=== PATIENT | male | born 1935 | race Caucasian/White ===

== ENCOUNTER → 2018-04-18 | Outpatient (CLI) | payer OTHER ==
[~2018-04-18] VITALS: Ht 185.4 cm; Wt 96.5 kg
[~2018-04-18] MED LIST: ALPRAZOLAM 0.50.5 M1 PO; ASPIRIN EC81 M1 PO; BYSTOLIC10 MG PO; CLARITIN10 MG PO; DEPO-TESTO200 MG/1 M IM; FENOFIBRATE160 MG PO; GLUCOSAMINE HC500 MG PO; HYDROCODON-ACE1 EAC7 PO; MULTIVITAMINS1 EAC7 PO; NASACORT; PREVACID15 MG PO; PROMETHAZINE-C120 ML PO; SYNTHROID137 MC1 PO; TRIAMCINOLONE A80 G2 TOP; XARELTO20 MG PO; ZPAK PO; ZYRTEC 10 MG TA10 MG PO
--- NOTE | ~2018-04-18 | HPC ---
[facility] [place] [address] PAIN MANAGEMENT CONSULTATION Name: SEUN MYLES Room #: REG [facility] Leeann.#: [id number] Admission: 04/18/18 Attend Phys: Mehdi Cervantes DO Discharge: Date of : 34 Report #: [id number] THIS REPORT FOR: //name// CC: Mehdi Loja MD DATE OF SERVICE: 04/18/2018 CHIEF COMPLAINT: Axial back pain, right-sided. HISTORY OF PRESENT ILLNESS: As you know, the patient is an 82-year-old male who has been experiencing axial right back pain that began on 02/11/2018. The patient denies specific injury or trauma that may have led to symptom occurrence. He states he has tried conservative treatment options including physical therapy, stretching exercises and core strengthening. He underwent imaging of his lumbar region, which showed degenerative changes of the lumbar spine, typical for an 82-year-old male. There was noted left L4-L5 lateral recess stenosis and sacralization of the L5, but symptoms the patient is experiencing are located on the right side, appears to be myofascial in origin. Due to the fact the patient did not receive improvement in symptoms with conservative treatment, the patient was then subsequently referred to our clinic. The patient indicates today pain is steady; describes the pain as stabbing; places current pain score 7/10, daily average at 10/10, worst pain has been is 10/10. The patient states movement exacerbates symptoms, rest tends to improve pain. He has been referred to our service to discuss treatment options for myofascial pain involving right low back. PAST MEDICAL HISTORY: 1. Essential hypertension. 2. Anxiety disorder. 3. Polycythemia. 4. Osteoarthritis. 5. Hypotestosteronism. 6. Coronary artery disease, status post implantation of a permanent pacemaker. 7. History of DVTs. SOCIAL HISTORY: The patient denies tobacco, alcohol, IV or illicit drug use. He is retired, retired years ago. He is unaccompanied today. REVIEW OF SYSTEMS: Positive for headaches, wearing corrective eyewear, hearing loss with tinnitus, chronic sinus problems with rhinitis, heart trouble, palpitations, frequent urination, nocturia, head injury, back pain. All other review of systems negative per 12-point review of systems other than those [address] [address] PAIN MANAGEMENT CONSULTATION Name: SEUN MYLES Room #: REG [facility] Karlos#: [id number] Admission: 04/18/18 Attend Phys: Mehdi Cervantes DO Discharge: Date of : 34 Report #: [id number] listed in history of present illness. Pain impact score 24/70 indicating [id number] interference of daily activities secondary to pain. ALLERGIES: BACTRIM, CIPRO, DILANTIN, LEVAQUIN, LOVENOX, VOLTAREN, PENICILLIN, CONTRAST AGENT, DICYCLOMINE, MYRBETRIQ, ELIQUIS. CURRENT MEDICATIONS: Tramadol 50 mg q. 6 hours p.r.n. pain, Toprol-XL 50 mg once a day, Zyrtec 10 mg per day, Skelaxin 800 mg t.i.d., testosterone injected every 2 weeks, Synthroid 137 mcg per day, fenofibrate 160 mg per day, Xarelto 20 mg per day, multivitamin 1 tab per day. IMAGING: CT lumbar spine dated 04/11/2018 shows degenerative changes of lumbar spine with mild scoliosis, left L4-L5 lateral recess stenosis sacralization of the L5, no traumatic injury. PQRS: The patient has osteoarthritic changes of the bilateral knees and low back. No rheumatoid arthritis. He is placing pain intensity of 7/10. He is not a fall risk, has not had a fall in the last 3 months. He is treated with blood thinners, but is not treated for hypertension. He is not on chronic opioids. He has a low assessment for opioid addiction. His pain impact tool indicates [id number] interference of daily activities secondary to pain. PHYSICAL EXAMINATION: VITAL SIGNS: Blood pressure 130/55, pulse 42, respiratory rate 16 and unlabored. The patient is 98% on room air, height 6 feet 1 inch tall, weight 212.8 pounds, BMI calculated at 28.1. GENERAL: Well-developed, well-nourished, well-hydrated 82-year-old male appearing stated age, placing current pain score at anywhere up to 7/10. HEENT: Normocephalic, atraumatic. Pupils equal, round, reactive to light. Extraocular muscles are intact. Sclerae nonicteric without injection. NEUROLOGIC: Cranial nerves 2-12 grossly intact. Speech is fluent. The patient deemed a fair historian. LUNGS: Clear. No wheeze, rhonchi or rales. CARDIOVASCULAR: Regular. No appreciable gallop, no rub. ABDOMEN: Soft, nontender, mildly obese, normoactive bowel sounds. EXTREMITIES: Show no clubbing, no cyanosis, no edema. MUSCULOSKELETAL: The patient has palpatory tenderness over the paraspinal musculature of lower lumbar spine, right-sided appears to have approximately 7 trigger points, no specific tender points. Myofascial symptoms are exacerbated with movement including extension and rotation towards the right, negative left. Seated straight leg raising negative. Supine straight leg raising negative. Kassi's test negative. Modified Gaenslen's positive for axial low back pain. Ankle clonus negative. Babinski is negative. Lumbar provocation testing does cause intensification of axial back pain due to facet arthropathy. [facility] [address] [place] [address] PAIN MANAGEMENT CONSULTATION Name: SEUN MYLES Room #: REG RITA [place]rett#: [id number] Admission: 04/18/18 Attend Phys: Mehdi Cervantes DO Discharge: Date of : 34 Report #: [id number] ASSESSMENT: 1. Myofascial pain. 2. Lumbosacral spondylosis without radiculopathy. 3. Facet arthropathy of the lumbar spine. 4. Degeneration of lumbar spine. 5. Chronic intractable pain. PLAN: 1. The patient has been referred to our clinic by his primary care physician to discuss right low back symptoms that are uncontrolled with conservative medical therapy. The patient is performing stretching exercises at home, but has not had a full formalized physical therapy to address this issue. Due to lack of improvement with conservative treatment options provided through his PCP, he was referred to our clinic to trial trigger point injections to address this axial back pain issue. The patient continues on his anticoagulant, which does cause slight complication with injections due to bleeding risk. We discussed the following with the patient for treatment options today. 2. The patient and I discussed physical therapy, stretching exercise, core strengthening as a treatment option. I do feel this would be a very effective way of treating his myofascial symptoms. We discussed medication management with adjustments in his current treatment. We also discussed trigger point injections, though the caveat was provided today that he is on anticoagulants and bruising may be fairly significant. After reviewing the risks and benefits of all the proposed treatment options, the patient chose to begin with trigger point injections. 3. The patient was advised the risks and benefits of trigger point injections. These risks include but are not necessarily limited to bleeding, bruising, infection, worsening of pain, no relief of pain, also risk of temporary or permanent muscle weakness, temporary or permanent nerve damage, possible pneumothorax and . The patient states he understood and wished to proceed. 4. I do recommend the patient begin a more formalized physical therapy program. We have offered this to the patient today. He is going to consider this as an option. After undergoing trigger points today. He did decide he wished to move forward with a formalized physical therapy program. I have offered the patient a referral. He can begin this as quickly as possible. 5. We will see the patient back in followup visit on an as needed basis for possible next in the series of trigger point injections and to discuss other treatment options. 6. I wish to thank Dr. Loja for the referral of this patient to our clinic. We will keep you apprised of his response to treatment. PROCEDURE NOTE DESCRIPTION OF PROCEDURE: Trigger point injections. [address] [address] PAIN MANAGEMENT CONSULTATION Name: SEUN MYLES Room #: REG CL Karlos#: [id number] Admission: 04/18/18 Attend Phys: Mehdi Cervantes DO Discharge: Date of : 34 Report #: [id number] After obtaining written consent, the patient was placed in seated position. By palpating using a single finger, 7 different trigger points were identified in the paraspinal musculature of the thoracolumbar area on the right. Each of these trigger points were marked with a marker and then sterilely cleaned with chlorhexidine. A 27-gauge 1-1/4 inch needle was then advanced towards each of the trigger points until the patient's typical radiating pain pattern was reproduced. After negative aspiration for heme, 1 mL of a solution containing 1 mL 40 mg per mL, 40 mg total triamcinolone and 6 mL of bupivacaine 0.5% was injected in a fanned out distribution. This was completed after 7 injections being performed at each of the trigger points. Sterile bandages were placed over injection site. The patient tolerated the procedure well, carefully escorted to recovery room in stable condition. No apparent complications. After meeting discharge criteria, the patient discharged home. <ELECTRONICALLY SIGNED> By: Mehdi Cervantes DO 04/24/18 1520 [id number] Mehdi Cervantes DO /nt
[2018-04-18 08:44] VITALS: BP 130/55
== END | disposition home or self-care (01) ==
LOC: PAIN 06:57
DX: M79.18 Myalgia, other site (principal); M47.27 Other spondylosis with radiculopathy, lumbosacral region; M12.88 Other specific arthropathies, not elsewhere classified, other specified site; M51.16 Intervertebral disc disorders with radiculopathy, lumbar region; M48.061 Spinal stenosis, lumbar region without neurogenic claudication; G89.29 Other chronic pain; I10 Essential (primary) hypertension; F41.9 Anxiety disorder, unspecified; E03.9 Hypothyroidism, unspecified; I25.10 Atherosclerotic heart disease of native coronary artery without angina pectoris; M41.86 Other forms of scoliosis, lumbar region; Z86.718 Personal history of other venous thrombosis and embolism; Z95.0 Presence of cardiac pacemaker; Z88.8 Allergy status to other drugs, medicaments and biological substances; Z88.0 Allergy status to penicillin; Z79.899 Other long term (current) drug therapy; Z79.01 Long term (current) use of anticoagulants; Z98.890 Other specified postprocedural states; Z90.49 Acquired absence of other specified parts of digestive tract

== ENCOUNTER → 2018-05-09 | Outpatient (CLI) | payer OTHER ==
[~2018-05-09] VITALS: Ht 185.4 cm; Wt 98.5 kg
--- NOTE | ~2018-05-09 | HPC ---
[facility] [address] [place] [address] PAIN MANAGEMENT CONSULTATION Name: SEUN MLYES [id number] Admission: 05/09/18 Attend Phys: Mehdi Cervantes DO Discharge: Date of : 34 Report #: [id number] THIS REPORT FOR: //name// CC: Mehdi Loja MD DATE OF SERVICE: 05/09/2018 CHIEF COMPLAINT: Axial back pain, right-sided. HISTORY OF PRESENT ILLNESS: As you know, the patient is an 82-year-old male who began express experiencing right axial back pain that began 02/11/2018. Denies any specific injury or trauma that may have led to recurrence of symptoms. He was referred back to our clinic to trial injection therapy. He was seen in consultation per the request of Dr. Loja 04/18/2018 where he was diagnosed with myofascial pain, overlying facet arthropathy of the lumbar spine. He underwent trigger point injections with improvement in symptoms. The patient reports as 60%. Despite this 60% improvement in symptoms, he returns with a level of pain 7/10 and indicates pain is steady and stabbing, returning, requesting next in the series of trigger point injections. ALLERGIES: CONTRAST AGENT, PHENYTOIN, DICLOFENAC, PENICILLIN, DICYCLOMINE, SULFAMETHOXAZOLE, CIPROFLOXACIN, LOVENOX, LEVAQUIN, ELIQUIS, MYRBETRIQ, CLARITHROMYCIN. CURRENT MEDICATIONS: Xarelto, levothyroxine, sertraline, fenofibrate, Bystolic. SOCIAL HISTORY: The patient denies tobacco, alcohol, IV or illicit drug use. He is retired, retired years ago, unaccompanied today. IMAGING: There is no new imaging available. PQRS: The patient has arthritic changes of bilateral knees, low back. No rheumatoid arthritis. He is placing current pain intensity 7/10. He is not a fall risk, has not had a fall in the last 3 months. He is treated with blood thinners, but not treated for hypertension. He is not on chronic opioids. He has a low assessment for opioid addiction. Pain impact indicates 23/70, bcrq-va-[id number] interference of daily activities secondary to pain. PHYSICAL EXAMINATION: VITAL SIGNS: Blood pressure 116/71, pulse 77, respiratory rate 14 and unlabored. The patient is 96% on room air, height 6 feet 1 inch tall, weight 217.2 pounds, BMI calculated 28.7. GENERAL: Well-developed, well-nourished, well-hydrated 82-year-old male appearing stated age, placing pain score 7/10. [address] [address] PAIN MANAGEMENT CONSULTATION Name: SEUN MYLES Room #: REG [facility].#: [id number] Admission: 05/09/18 Attend Phys: Mehdi Cervantes DO Discharge: Date of : 34 Report #: [id number] HEENT: Normocephalic, atraumatic. Pupils are equal, round, reactive. Hearing is decreased, but hearing aids are in place. EXTREMITIES: Show no clubbing, no cyanosis, no edema. MUSCULOSKELETAL: The patient has some palpatory tenderness over the paraspinal musculature of lower lumbar spine, no spinous process tenderness. He has 9 specific trigger points and multiple tender points. There is palpatory tenderness over the facet joints of the lower lumbar spine. Lumbar provocation testing is met with increasing axial back pain with extension, rotation, and lateral flexion classic for facet arthropathy. ASSESSMENT: 1. Myofascial pain. 2. Lumbosacral spondylosis without radiculopathy. 3. Facet arthropathy of the lumbar spine. 4. Chronic lumbar degeneration. 5. Chronic intractable pain. PLAN: 1. The patient returns today in followup visit indicating improvement with the trigger point injections at the last visit. The patient and I discussed at length today the source of the symptoms appears to be related to the facet joints of lower lumbar spine. We discussed options for treatment to address facet arthropathy pain but the patient is adamant that he is wishing to undergo only trigger point injections. He is unwilling to come off his Xarelto to undergo intra-articular facet injections, which would address the source of his symptoms more effectively. He has requested that we provide trigger point injections again today as he noted benefit of about 60%. He does not wish to look towards the facet injections or radiofrequency lesioning of the medial branch nerves to address the underlying cause of his symptoms. He requests that we address his myofascial pain. 2. The patient has been advised of the risks and benefits of repeating trigger point injections. These risks include but are not necessarily limited to bleeding, bruising, infection, worsening pain, no relief of pain, also risk of temporary or permanent muscle weakness, temporary or permanent nerve damage, possible paralysis, pneumothorax and . The patient states understood and wished to proceed. 3. No medication changes made at today's visit. The patient to continue current medical therapy as previously prescribed. 4. We will see the patient back in followup visit on an as needed basis. PROCEDURE NOTE DESCRIPTION OF PROCEDURE: Trigger point injections. After obtaining written consent, the patient was placed in seated position. By palpating using a single finger, 9 different trigger points were identified that [address] [address] PAIN MANAGEMENT CONSULTATION Name: SEUN MYLES [facility] [id number] Admission: 05/09/18 Attend Phys: Mehdi Cervantes DO Discharge: Date of : 34 Report #: [id number] reproduced the patient's typical pain. The trigger points were in the paraspinal musculature of thoracolumbar area, specifically on the right side. Each of the trigger points were marked with sterile marker and cleansed sterilely with chlorhexidine. A 27-gauge 1-1/4 inch needle was then used to advance towards each of the trigger points until the patient's typical radiating pain pattern was reproduced. After negative aspiration for heme, 1 mL of a solution containing 1 mL 40 mg per mL, 40 mg total triamcinolone and 10 mL of bupivacaine 0.5% was injected in a fanned out distribution. Needle was then removed. Sterile bandage placed over each of the 9 trigger points. The patient tolerated procedure well, carefully escorted to recovery room in stable condition. No apparent complication. After meeting discharge criteria, the patient discharged home. By: 0744 0801 Mehdi Cervantes DO /nt
[2018-05-09 10:04] VITALS: BP 116/71
--- NOTE | 2018-05-09 10:12 | NUR ---
Pain Clinic Assessment: 1. History of Osteoarthritis: History of Rheumatoid Arthritis: 2. Height: 6 ft. 1 in. 185.4 cm. Weight: 217.2 lb. oz. 98.521 kg. Patient's BMI: 28.7 3. Vital Signs: BP: 116/71 Pulse: 77 Resp: 14 Temp: 02 Sat: 96 ECG Mon: 4. Pain Intensity: 7 5. Fall Risk: Dizziness: N Needs help standing or walking: N Fallen in the last 3 months: N Fall risk comments: 6. Patient on Blood Thinner: XARELTO 7. History of Hypertension: N 8. Opioid Therapy greater than 6 weeks: N Opiate Contract Signed: 9. Risk Assessment Tool Provided: LOW 10. Functional Assessment Tool: 11. Recreational Drug Use: Never Drug Type: Tobacco Use: Never Smoker Tobacco Type: Amount or Packs/day: How Many Years: Alcohol Use: No Frequency: Quant:
== END | disposition home or self-care (01) ==
LOC: PAIN 08:18
DX: M79.18 Myalgia, other site (principal); M47.27 Other spondylosis with radiculopathy, lumbosacral region; M46.96 Unspecified inflammatory spondylopathy, lumbar region; M51.36 Other intervertebral disc degeneration, lumbar region; G89.29 Other chronic pain; Z79.01 Long term (current) use of anticoagulants; Z88.0 Allergy status to penicillin; Z88.2 Allergy status to sulfonamides; Z88.8 Allergy status to other drugs, medicaments and biological substances; Z79.899 Other long term (current) drug therapy

== ENCOUNTER → 2018-07-24 | Outpatient (CLI) | payer OTHER ==
[~2018-07-24] VITALS: Ht 185.4 cm; Wt 102.2 kg
[~2018-07-24] MED LIST changes: +METOPROLOL SUCC25 M1 PO; +METOPROLOL SUCC50 MG PO
[2018-07-24 13:46] VITALS: BP 128/72
--- NOTE | 2018-07-24 13:58 | NUR ---
Pain Clinic Assessment: 1. History of Osteoarthritis: Not Applicable History of Rheumatoid Arthritis: Not Applicable 2. Height: 6 ft. 1 in. 185.4 cm. Weight: 225.4 lb. oz. 102.241 kg. Patient's BMI: 29.7 3. Vital Signs: BP: 128/72 Pulse: 73 Resp: 16 Temp: 02 Sat: 97 ECG Mon: 4. Pain Intensity: 5 5. Fall Risk: Dizziness: N Needs help standing or walking: N Fallen in the last 3 months: N Fall risk comments: 6. Patient on Blood Thinner: XARELTO 7. History of Hypertension: N 8. Opioid Therapy greater than 6 weeks: N Opiate Contract Signed: 9. Risk Assessment Tool Provided: LOW 10. Functional Assessment Tool: 11. Recreational Drug Use: Never Drug Type: Tobacco Use: Never Smoker Tobacco Type: Amount or Packs/day: How Many Years: Alcohol Use: No Frequency: Quant:
--- NOTE | 2018-08-01 07:49 | HPC ---
[facility] [address] PAIN MANAGEMENT CONSULTATION Name: SEUN MYLES Room #: REG [facility]edom.#: [id number] Admission: 07/24/18 ������������������ Attend Phys: Mehdi Cervantes DO Discharge: ������������������ Date of : 34 Report #: [id number] THIS REPORT FOR: //name// CC: Mehdi Loja MD DATE OF SERVICE: 07/24/2018 CHIEF COMPLAINT: Axial left-sided back pain. HISTORY OF PRESENT ILLNESS: As you know, the patient is an 82-year-old male who began experiencing axial right low back pain that presented 02/11/2018. He denies any specific injury or trauma that led to symptom occurrence. He is referred to our service to trial trigger point injections. He underwent trigger point injections on 04/18/2018 and repeated these injections on 05/09/2018. He has had complete resolution of his right low back symptoms, but is now experiencing left low back symptoms. He denies any specific injury or trauma or any changes in medical history since our last visit. He returns requesting trigger point injections to address his left axial back pain. He is placing his pain score today at 5/10. ALLERGIES: CONTRAST AGENT, PHENYTOIN, DICLOFENAC, PENICILLIN, DOXYCYCLINE, SULFAMETHOXAZOLE, TRIAMTERENE, CIPROFLOXACIN, ENOXAPARIN, LEVOFLOXACIN, ELIQUIS, and MYRBETRIQ. SOCIAL HISTORY: The patient denies tobacco, alcohol, IV, or illicit drug use. He is retired, retired 8 years ago. He is accompanied by his present in room today. IMAGING: No new imaging available. PQRS: The patient has arthritic changes of bilateral knees and the lumbar spine, no rheumatoid arthritis. The patient is placing pain intensity today at 5/10, is not at fall risk, has not had a fall in the last 3 months. He is on blood thinners in the form of Xarelto. He is treated for hypertension. He is not on chronic opioids. He has a low opiate addiction potential. He is placing pain impact score of 23/70 indicating [id number]-[id number] interference of daily activities secondary to pain. PHYSICAL EXAMINATION: VITAL SIGNS: Blood pressure 128/72, pulse 73, respiratory rate 16 and unlabored. The patient is 97% on room air. Height 6 foot 1 inch tall, weighs 225.4 pounds, and BMI calculated 29.7. GENERAL: Well-developed, well-nourished, well-hydrated 82-year-old male, appearing stated age. Pain is rated today at 5/10. [place] [address] PAIN MANAGEMENT CONSULTATION Name: SEUN MYLES [facility] [id number] Admission: 07/24/18 ������������������ Attend Phys: Mehdi Cervantes DO Discharge: ������������������ Date of : 34 Report #: [id number] HEENT: Normocephalic, atraumatic. Pupils equal, round, reactive to light. EXTREMITIES: Show no clubbing, no cyanosis, and no edema. MUSCULOSKELETAL: The patient has some palpatory tenderness over the paraspinal musculature of the lower lumbar, mid lumbar, upper lumbar, and lower thoracic area. This is all left-sided. There are three trigger points identified that caused the patient's typical radiating pain pattern. Seated straight leg raising negative. Supine straight leg raising negative. Kassi's test is negative. Modified Gaenslen's positive for axial low back pain. ASSESSMENT: 1. Myofascial pain. 2. Lumbosacral spondylosis without radiculopathy. 3. Facet arthropathy of the lumbar spine. 4. Degeneration of lumbar spine. 5. Muscle spasms. 6. Chronic intractable pain. PLAN: 1. The patient returns today in followup visit having complete resolution of his right axial back pain. He is now experiencing 3 discrete areas of discomfort on the left side for which he wishes to undergo trigger point injections. The patient has been advised of the risks and the benefits of trigger point injections in the area. These risks include but are not necessarily limited to bleeding, bruising, infection, worsening pain, no relief of pain, also risk of temporary or permanent muscle weakness, temporary or permanent nerve damage, possible paralysis pneumothorax, and . The patient states understood and wished to proceed. 2. No medication changes made at today's visit. The patient will continue current medical therapy as previously prescribed. 3. We will see the patient back in followup visit on an as needed basis. PROCEDURE NOTE DESCRIPTION OF PROCEDURE: Trigger points. After obtaining written consent, the patient was placed in a seated position. By palpating using a single finger, 3 discrete trigger points were identified within the paraspinal musculature of the thoracolumbar area on the left. Each of the trigger points were marked with a marker and then sterilely cleaned with chlorhexidine. A 27-gauge 1-1/4 inch needle was then advanced towards each of the trigger points until the patient's typical radiating pain pattern was reproduced. After negative aspiration for heme, 1 mL of a solution containing 1 mL 40 mg per mL, 40 mg total triamcinolone, and 2 mL of bupivacaine 0.5% injected in a fanned out distribution at each site. There was a total of 3 mL of solution given. [address] [address] PAIN MANAGEMENT CONSULTATION Name: SEUN MYLES [facility] #: [facility]#: [id number] Admission: 07/24/18 ������������������ Attend Phys: Mehdi Cervantes DO Discharge: ������������������ Date of : 34 Report #: [id number] Sterile bandage was then placed over injection site. The patient tolerated procedure well, carefully escorted to recovery room in stable condition. No apparent complications. After meeting discharge criteria, the patient discharged home. ��������������������������������������������� <ELECTRONICALLY SIGNED> ���������������������������������������� By: Mehdi Cervantes DO ��������������������������������������������� 08/01/18 0749 1324 0211 Mehdi Cervantes DO /nt
== END | disposition home or self-care (01) ==
LOC: PAIN 07:17
DX: M79.18 Myalgia, other site (principal); M47.27 Other spondylosis with radiculopathy, lumbosacral region; M12.88 Other specific arthropathies, not elsewhere classified, other specified site; M51.16 Intervertebral disc disorders with radiculopathy, lumbar region; G89.29 Other chronic pain; Z88.8 Allergy status to other drugs, medicaments and biological substances; Z79.899 Other long term (current) drug therapy

== ENCOUNTER → 2018-12-11 | Outpatient (CLI) | payer OTHER ==
[~2018-12-11] VITALS: Ht 185.4 cm; Wt 100.4 kg
[~2018-12-11] MED LIST changes: +SORINE 80 MG TA80 M1 PO
--- NOTE | ~2018-12-11 | HPC ---
[facility] [address] [place] [address] PAIN MANAGEMENT CONSULTATION Name: SEUN MYLES Room #: REG RITA Karlos#: [id number] Admission: 12/11/18 ������������������ Attend Phys: Mehdi Cervantes DO Discharge: ������������������ Date of : 34 Report #: [id number] THIS REPORT FOR: //name// CC: Mehdi Loja MD DATE OF SERVICE: 12/11/2018 CHIEF COMPLAINT: Myofascial pain. HISTORY OF PRESENT ILLNESS: As you know, the patient is an 83-year-old male who returns today in followup visit with right axial low back pain that reoccurred while putting on his spandex compression stockings. He states pain begins in the lower portion of back, radiates towards the iliac crest on the right. He has returned today in followup visit to undergo trigger point injections as he has seen good benefit with these in the past. He returns requesting trigger point injections provided today. He places pain today at 5/10. He remains on his Xarelto understanding that he is at risk for bleeding issues with this medication even with trigger point injections. He states his pain has intensified to the point he cannot go about his activities of daily living due to this ongoing symptomology. He has not begun any type of stretching program. He does go to a local gym, but there are no formalized treatment options available for the patient from a physical standpoint. He does no stretching exercises. He returns today for trigger point injections. ALLERGIES: CONTRAST AGENT, PHENYTOIN, DICLOFENAC, PENICILLIN, DOXYCYCLINE, SULFAMETHOXAZOLE, TRIAMTERENE, CIPROFLOXACIN, ENOXAPARIN, LEVOFLOXACIN, ELIQUIS, MYRBETRIQ. SOCIAL HISTORY: The patient denies tobacco, alcohol, IV or illicit drug use. He is retired, retired 8 years ago, accompanied by his present in room today. IMAGING: No new imaging available. PQRS: The patient has known osteoarthritic changes of the lumbar spine, bilateral knees but no rheumatoid arthritis. He is placing pain intensity 5/10, is not a fall risk, has not had a fall in last 3 months. He is on Xarelto. He is treated for hypertension. He is not on opioids. He has a low opioid addiction potential. He is placing pain impact score 23/70 indicating moderate interference of daily activities secondary to pain. PHYSICAL EXAMINATION: VITAL SIGNS: Blood pressure 121/64, pulse 79, respiratory rate 16 and unlabored. The patient is 97% on room air, height 6 feet 1 inch tall, weight [facility] [address] [place] [address] PAIN MANAGEMENT CONSULTATION Name: SEUN MYLES Room #: REG [facility]#: [id number] Admission: 12/11/18 ������������������ Attend Phys: Mehdi Cervantes DO Discharge: ������������������ Date of : 34 Report #: [id number] 221.4 pounds, BMI calculated 29.2. GENERAL: Well-developed, well-nourished, well-hydrated 83-year-old male appearing stated age, pain is rated today 5/10. HEENT: Normocephalic, atraumatic. Hearing is decreased. There are hearing aids present. EXTREMITIES: Show no clubbing, no cyanosis, no edema. MUSCULOSKELETAL: Palpatory tenderness over the paraspinal musculature of lower right lumbar area. There are six specific trigger points identified. No specific tender points. Seated straight leg raising negative. Supine straight leg raising negative. Kassi's test negative. Modified Gaenslen's positive for some axial low back pain. Ankle clonus negative. Babinski is negative. ASSESSMENT: 1. Myofascial pain. 2. Lumbosacral spondylosis without radicular symptoms. 3. Facet arthropathy of the lumbar spine. 4. Muscle spasms. 5. Chronic intractable pain. PLAN: 1. The patient returns today in followup visit indicating recurrence of right low back pain radiating from the paraspinal musculature towards the iliac crest on the right. He states this was exacerbated with putting on his compression stockings the other day. He does not participate in any formalized physical therapy program or stretching exercises, even though we have provided the patient with a prescription to undergo this type of treatment to address his myofascial symptoms. He has been resistant to initiate the physical therapy. We strongly recommend that he follow up with physical therapy, learning techniques for stretching and alleviating the myofascial symptoms. He continues to have reoccurred. 2. The patient has been consented and will perform trigger point injections at today's visit. The patient was advised risks and benefits of the procedure. These risks include but are not necessarily limited to bleeding, bruising, infection, worsening pain, no relief of pain, also risk of temporary or permanent muscle weakness, temporary or permanent nerve damage, possible paralysis and . The patient states he understood and wished to proceed. 3. No medication changes made at today's visit. The patient will continue current medical therapy as previously prescribed. 4. The patient should follow up with physical therapy for the formalized stretching program and treatments for myofascial symptoms. We will see him back in followup visit on an as needed basis. PROCEDURE NOTE DESCRIPTION OF PROCEDURE: Trigger point injections. [address] [address] PAIN MANAGEMENT CONSULTATION Name: SEUN MYLES Room #: REG CLI Leeann#: [id number] Admission: 12/11/18 ������������������ Attend Phys: Mehdi Cervantes DO Discharge: ������������������ Date of : 34 Report #: [id number] After obtaining written consent, the patient was placed in a seated position. By palpating using a single finger, six trigger points were identified that radiated the patient's typical pain pattern. These trigger points were located in the paraspinal musculature of thoracolumbar area on the right and just superior to the iliac crest. The trigger points were marked with a sterile marker and cleaned with chlorhexidine. A 27-gauge 1-1/4 inch needle was then used to advance towards each of the trigger points until the patient's typical radiating pain pattern was then reproduced. After negative aspiration for heme, 1 mL of a solution containing 1 mL, 40 mg per mL, 40 mg total triamcinolone and 5 mL bupivacaine 0.5% injected and fanned out distribution at each site. There was a total of 6 mL being provided. A sterile bandage was placed over each of the injection sites. The patient tolerated procedure well, carefully escorted to recovery room in stable condition. No apparent complications. After meeting discharge criteria, the patient discharged home. ��������������������������������������������� ���������������������������������������� By: ��������������������������������������������� [id number] Mehdi Cervantes DO /nt
[2018-12-11 12:51] VITALS: BP 121/64
--- NOTE | 2018-12-11 13:01 | NUR ---
Pain Clinic Assessment: 1. History of Osteoarthritis: Not Applicable History of Rheumatoid Arthritis: Not Applicable 2. Height: 6 ft. 1 in. 185.4 cm. Weight: 221.4 lb. oz. 100.427 kg. Patient's BMI: 29.2 3. Vital Signs: BP: 121/64 Pulse: 79 Resp: 16 Temp: 02 Sat: 97 ECG Mon: 4. Pain Intensity: 5 5. Fall Risk: Dizziness: N Needs help standing or walking: N Fallen in the last 3 months: N Fall risk comments: 6. Patient on Blood Thinner: XARELTO 7. History of Hypertension: N 8. Opioid Therapy greater than 6 weeks: N Opiate Contract Signed: 9. Risk Assessment Tool Provided: LOW 10. Functional Assessment Tool: 11. Recreational Drug Use: Never Drug Type: Tobacco Use: Never Smoker Tobacco Type: Amount or Packs/day: How Many Years: Alcohol Use: No Frequency: Quant:
== END | disposition home or self-care (01) ==
LOC: PAIN 07:00
DX: M79.18 Myalgia, other site (principal); M47.817 Spondylosis without myelopathy or radiculopathy, lumbosacral region; M12.88 Other specific arthropathies, not elsewhere classified, other specified site; G89.29 Other chronic pain; Z79.01 Long term (current) use of anticoagulants; Z88.0 Allergy status to penicillin; Z88.8 Allergy status to other drugs, medicaments and biological substances; Z79.899 Other long term (current) drug therapy

== ENCOUNTER → 2019-07-17 | Outpatient (CLI) | payer OTHER ==
[~2019-07-17] VITALS: Ht 185.4 cm; Wt 100.6 kg
--- NOTE | ~2019-07-17 | HPC ---
[facility] [address] [place] [address] PAIN MANAGEMENT CONSULTATION Name: SEUN MYLES Room #: REG RITA [facility].#: [id number] Admission: 07/17/19 Attend Phys: Mehdi Cervantes DO Discharge: Date of : 34 Report #: [id number] THIS REPORT FOR: cc: Rickey Loja MD, Kirk D. MD Johnson, James E. DO ~ CC: Mehdi Loja MD DATE OF SERVICE: 07/17/2019 CHIEF COMPLAINT: Myofascial pain. HISTORY OF PRESENT ILLNESS: As you know, the patient is a pleasant 83-year-old male who has returned today in followup visit with right axial back pain issues. We have followed the patient for some time for continued right axial back pain, myofascial symptoms. He has done very well with trigger point injections in the past. He states that this new pain returned when trying to put on his shoes. Apparently, the patient is having difficulty with placing and tying his shoes on the right side. He states he stretches his back and then his pain begins. It appears again to be myofascial in origin. The patient is extremely stiff and inflexible over the past couple of days due to this ongoing pain. He returns today in followup visit for trigger point injections in hopes of improving his right low back paravertebral symptoms. ALLERGIES: CONTRAST AGENT, PHENYTOIN, DICLOFENAC, PENICILLIN, DOXYCYCLINE, SULFAMETHOXAZOLE, TRIAMTERENE, CIPROFLOXACIN, ENOXAPARIN, LEVOTHYROXINE, ELIQUIS, AND MYRBETRIQ. SOCIAL HISTORY: The patient denies tobacco, alcohol, IV or illicit drug use. He is retired, retired years ago. He is accompanied by his present in room today. IMAGING: No new imaging available. PQRS: The patient has known arthritic changes of lumbar spine, bilateral knees, but reports no rheumatoid arthritis. He is placing pain intensity at 4/10. He is not a fall risk, has not had a fall in last 3 months. He is on Xarelto for blood thinning. He is treated for hypertension. He is not on any opioids and has a low opioid addiction potential. Pain impact score 23 of 70 indicating mild to moderate interference of daily activities secondary to pain. PHYSICAL EXAMINATION: VITAL SIGNS: Blood pressure 129/75, pulse 70, respiratory rate 16 and unlabored. The patient is 98% on room air. Height 6 feet 1 inch tall, weight [facility] [address] [place] [address] PAIN MANAGEMENT CONSULTATION Name: SEUN MYLES Room #: REG CLI [facility]#: [id number] Admission: 07/17/19 Attend Phys: Mehdi Cervantes DO Discharge: Date of : 34 Report #: [id number] 221 pounds, BMI calculated 29.3. GENERAL: Well-developed, well-nourished, well-hydrated 83-year-old male appearing stated age. Pain is rated today 4/10. HEENT: Normocephalic, atraumatic. Pupils equal, round, reactive to light. Extraocular muscles are intact. Sclerae nonicteric without injection. EXTREMITIES: Show no clubbing, no cyanosis, and no edema. MUSCULOSKELETAL: The patient has palpatory tenderness over the paraspinal musculature of the right lower lumbar spine. It does appear he is experiencing spasming of the longissimus, the spinalis, and the iliocostalis muscles on the right. I am unable to elicit approximately 10 specific trigger points that intensify the patient's pain. There are multiple tender points in the area. ASSESSMENT: 1. Myofascial pain. 2. Lumbosacral spondylosis without radicular symptoms. 3. Facet arthropathy of lumbar spine. 4. Muscle spasms. 5. Chronic intractable pain. PLAN: 1. The patient returns today in followup visit having exacerbated his chronic right low back pain with trying to place shoes and tie his shoes a couple of days back. The patient reports that he has done nothing from a physical standpoint to try to alleviate symptoms including stretching or massage therapy. The patient, as you are aware, does participate in a workout routine, but it is inconsistent. He returns today in followup visit requesting trigger point injections to address axial back pain and myofascial symptoms. The patient denies any injury or trauma to the area, but does equate his symptoms to this incident trying to tie his shoes. 2. No medication changes made at today's visit. The patient will continue current medical therapy as previously prescribed. 3. We have recommended to the patient that he begin a more concerted effort at a stretching program. I believe that light yoga would be extremely beneficial for the patient. He does have access to a gym through his [employer] program and he believes there might be an adult yoga program that is present at the facility. I have advised the patient to look into this carefully. I do feel that increased mobility and stretching as well as possible light massage would benefit the patient significantly. The recurrence of his myofascial symptoms would indicate that he is restricting his motion in the area causing exacerbation of symptoms with little or no significant irrigations. We strongly suggest stretching and exercise program for the patient to be utilized consistently. 4. We will see the patient back in followup visit on an as needed basis for possible further treatment for his myofascial pain. We are hopeful the patient will see benefit as he is seen with previous trigger point injections. [facility] [address] [place] [address] PAIN MANAGEMENT CONSULTATION Name: SEUN MYLES Room #: REG CL Leeann.#: [id number] Admission: 07/17/19 Attend Phys: Mehdi Cervantes DO Discharge: Date of : 34 Report #: [id number] PROCEDURE NOTE DESCRIPTION OF PROCEDURE: Trigger point injections. After obtaining written consent, the patient was placed in a seated position. By palpating using a single finger, 10 trigger points were identified that radiated the patient's typical radiating pain pattern. These trigger points were located within the paraspinal musculature of the thoracolumbar area on the right side just superior to the iliac crest. Trigger points were marked with sterile marker and cleansed with chlorhexidine. A 27-gauge 1-1/4 inch needle was then used to advance towards each of the trigger points until the patient's typical radiating pain pattern was reproduced. After negative aspiration for heme, 1 mL of a solution containing 1 mL, 40 mg per mL, 40 mg total triamcinolone along with 9 mL bupivacaine 0.5% injected in a fanned out distribution at each site. There was a total of 10 mL of injectate provided. Sterile bandages were placed over each of the injection sites. The patient tolerated procedure well, carefully escorted to recovery room in stable condition. No apparent complications. After meeting discharge criteria, the patient discharged home. By: 0804 Mehdi Cervantes DO /diamond
[2019-07-17 14:00] VITALS: BP 129/75
--- NOTE | 2019-07-17 14:23 | NUR ---
Pain Clinic Assessment: 1. History of Osteoarthritis: Not Applicable History of Rheumatoid Arthritis: Not Applicable 2. Height: 6 ft. 1 in. 185.4 cm. Weight: 221.8 lb. oz. 100.608 kg. Patient's BMI: 29.3 3. Vital Signs: BP: 129/75 Pulse: 70 Resp: 16 Temp: 02 Sat: 98 ECG Mon: 4. Pain Intensity: 4 5. Fall Risk: Dizziness: N Needs help standing or walking: N Fallen in the last 3 months: N Fall risk comments: 6. Patient on Blood Thinner: XARELTO 7. History of Hypertension: N 8. Opioid Therapy greater than 6 weeks: N Opiate Contract Signed: 9. Risk Assessment Tool Provided: LOW 10. Functional Assessment Tool: 11. Recreational Drug Use: Never Drug Type: Tobacco Use: Never Smoker Tobacco Type: Amount or Packs/day: How Many Years: Alcohol Use: No Frequency: Quant:
== END | disposition home or self-care (01) ==
LOC: PAIN 06:45
DX: M79.18 Myalgia, other site (principal); M47.897 Other spondylosis, lumbosacral region; M47.896 Other spondylosis, lumbar region; G89.29 Other chronic pain; M19.90 Unspecified osteoarthritis, unspecified site; Z98.890 Other specified postprocedural states; Z79.899 Other long term (current) drug therapy; Z88.0 Allergy status to penicillin; Z88.8 Allergy status to other drugs, medicaments and biological substances; Z79.01 Long term (current) use of anticoagulants

== ENCOUNTER 2019-11-08 00:46 | Emergency (ER) | payer OTHER ==
[~2019-11-08] VITALS: Ht 185.4 cm; Wt 97.5 kg
[2019-11-08 02:46] VITALS: BP 136/75
== END 2019-11-08 02:48 | disposition home or self-care (01) ==
LOC: ER 00:46
DX: R04.0 Epistaxis (principal); Z79.01 Long term (current) use of anticoagulants; Z88.1 Allergy status to other antibiotic agents; Z91.041 Radiographic dye allergy status; Z88.0 Allergy status to penicillin; Z88.6 Allergy status to analgesic agent; Z79.899 Other long term (current) drug therapy; Z90.89 Acquired absence of other organs; Z90.49 Acquired absence of other specified parts of digestive tract; Z95.0 Presence of cardiac pacemaker

== ENCOUNTER → 2019-11-27 | Outpatient (CLI) | payer OTHER ==
[~2019-11-27] VITALS: Ht 185.4 cm; Wt 100.9 kg
[2019-11-27 14:17] VITALS: BP 138/84
--- NOTE | 2019-11-27 14:19 | NUR ---
Pain Clinic Assessment: 1. History of Osteoarthritis: Left Upper Extremity History of Rheumatoid Arthritis: Not Applicable 2. Height: 6 ft. 1 in. 185.4 cm. Weight: 222.4 lb. oz. 100.880 kg. Patient's BMI: 29.3 3. Vital Signs: BP: 138/84 Pulse: 86 Resp: 18 Temp: 02 Sat: 96 ECG Mon: 4. Pain Intensity: 2 NOW, 10 AT NIGHT 5. Fall Risk: Dizziness: N Needs help standing or walking: N Fallen in the last 3 months: N Fall risk comments: 6. Patient on Blood Thinner: XARELTO 7. History of Hypertension: N 8. Opioid Therapy greater than 6 weeks: N Opiate Contract Signed: 9. Risk Assessment Tool Provided: LOW 10. Functional Assessment Tool: 11. Recreational Drug Use: Never Drug Type: Tobacco Use: Never Smoker Tobacco Type: Amount or Packs/day: How Many Years: Alcohol Use: No Frequency: Quant:
--- NOTE | 2019-12-11 14:21 | HPC ---
[facility] [place] [address] PAIN MANAGEMENT CONSULTATION Name: SEUN MYLES Room #: REG RITA Bradshaw.#: [id number] Admission: 11/27/19 Attend Phys: Mehdi Cervantes DO Discharge: Date of : 34 Report #: [id number] THIS REPORT FOR: cc: Rickey Ljoa MD, Kirk D. MD Johnson, James E. DO ~ DATE OF SERVICE: 11/27/2019 REFERRING PHYSICIAN: Rickey Loja MD CHIEF COMPLAINT: Myofascial pain. HISTORY OF PRESENT ILLNESS: As you know, the patient is a pleasant 84-year-old male who returns today in followup visit with recurrent myofascial symptoms. He is describing pain that begins in the trapezius on the left, radiates towards the shoulder and down towards the inferior aspect of the scapula. There is noted 8 trigger points identified within this area. The patient has trialed conservative treatment including medication management, rest, relaxation and massage without efficacy. He has returned today requesting trigger point injections to address the symptoms. He denies injury or trauma to the area that may have led to symptom development. ALLERGIES: CONTRAST AGENT, PHENYTOIN, DICLOFENAC, PENICILLIN, levothyroxine, ENOXAPARIN, CIPROFLOXACIN, TRIAMTERENE, SULFAMETHOXAZOLE, ELIQUIS, MYRBETRIQ. SOCIAL HISTORY: The patient denies tobacco, alcohol, IV or illicit drug use. He is retired, retired years ago, accompanied by his present in room today. IMAGING: No new imaging available. PQRS: The patient has known arthritic changes of the lumbar spine, bilateral knees. No rheumatoid arthritis. He is placing current pain score anywhere from 2-10/10. He is not a fall risk, has not had a fall in last 3 months. He is on blood thinners in the form of Xarelto. He is not treated for hypertension. He is not on chronic opioids and has a low opioid addiction. Potential pain impact reported today 23 of 70 mild to moderate, interference to daily activities secondary to pain. PHYSICAL EXAMINATION: VITAL SIGNS: Blood pressure 130/84, pulse is 86, respiratory rate 18 and unlabored. The patient is 96% on room air, height 6 feet 1 inch tall, weight 223.4 pounds, BMI calculated 29.3. GENERAL: Well-developed, well-nourished, well-hydrated 84-year-old male appearing stated age, pain is rated anywhere from 2-10/10 involving the left trapezius and rhomboids. [address] [address] PAIN MANAGEMENT CONSULTATION Name: SEUN MYLES Room #: REG [facility].#: [id number] Admission: 11/27/19 Attend Phys: Mehdi Cervantes DO Discharge: Date of : 34 Report #: [id number] HEENT: Normocephalic, atraumatic. Pupils equal, round and reactive. Speech is fluent. EXTREMITIES: Show no clubbing, no cyanosis, and no edema. MUSCULOSKELETAL: Tenderness to palpation is noted over the paraspinal musculature of the upper thoracic area involving the trapezius and rhomboids on the left, negative right. There are 8 trigger points identified within this area that radiates the patient's typical pattern of distribution of symptoms. There is no skin color changes over the area concerning of any lesions or rash. ASSESSMENT: 1. Myofascial pain. 2. Muscle spasms. 3. Chronic intractable pain. PLAN: 1. The patient returns today in followup visit to discuss the possibility of undergoing trigger point injections to address symptoms within the trapezius and rhomboids on the left. There were 8 discrete trigger points identified by palpation today in this area. We did discuss with the patient the options for treatment, and he chose to undergo trigger point injections. The patient was advised on risks and benefits of trigger point injections. These risks include but are not necessarily limited to bleeding, bruising, infection, worsening pain, no relief of pain, also risk of temporary or permanent muscle damage, possible pneumothorax and . The patient states understood and wished to proceed. 2. No medication changes made at today's visit. The patient will continue current medical therapy as prior prescribed. 3. We will see the patient back in followup visit on an as needed basis for possible next in a series of trigger point injections and to discuss options for treatment if symptoms do not resolve with more conservative treatment. DESCRIPTION OF PROCEDURE: Trigger point injections. After obtaining written consent, the patient was placed in a seated position. By palpating using a single finger, 8 trigger points were identified that radiated the patient's typical radiating pain pattern. These trigger points were located with the paraspinal musculature of the thoracic area involving the trapezius and rhomboids on the left. Each trigger point was marked with a sterile marker and cleansed with chlorhexidine. A 27-gauge 1-1/4 inch needle was then used to advance towards each of the trigger points until the patient's typical radiating pain pattern was reproduced at each site. After negative aspiration for heme, 1 mL of a solution containing 1 mL 40 mg per mL, 40 mg total triamcinolone along with 7 mL bupivacaine 0.5% was injected and fanned out distribution at each site. A total of 8 mL of [address] [address] PAIN MANAGEMENT CONSULTATION Name: SEUN MYLES [facility] [id number] Admission: 11/27/19 Attend Phys: Mehdi Cervantes DO Discharge: Date of : 34 Report #: [id number] injectate was provided. Sterile bandages were placed over each of the injection sites. The patient tolerated procedure well, carefully escorted to recovery room in stable condition. No apparent complications. After meeting our discharge criteria, the patient discharged home. <ELECTRONICALLY SIGNED> By: Mehdi Cervantes DO 12/11/19 [id number] Mehdi Cervantes DO /nt
== END | disposition home or self-care (01) ==
LOC: PAIN 07:11
PROVIDERS: ATTEND Anesthesiology Pain Medicine
DX: M79.18 Myalgia, other site (principal); G89.29 Other chronic pain; M19.90 Unspecified osteoarthritis, unspecified site; Z98.890 Other specified postprocedural states; Z79.899 Other long term (current) drug therapy; Z79.01 Long term (current) use of anticoagulants

== ENCOUNTER → 2020-05-20 | Outpatient (CLI) | payer OTHER | LOC: LAB 13:41 | PROVIDERS: ATTEND Family Medicine | DX: Z20.822 Contact with and (suspected) exposure to COVID-19 (principal) ==

== ENCOUNTER → 2020-09-08 | Outpatient (CLI) | payer OTHER ==
[~2020-09-08] VITALS: Ht 185.4 cm; Wt 102.4 kg
[2020-09-08 14:19] VITALS: BP 140/80
--- NOTE | 2020-09-08 14:44 | NUR ---
Pain Clinic Assessment: 1. History of Osteoarthritis: Left Upper Extremity History of Rheumatoid Arthritis: Not Applicable 2. Height: 6 ft. 1 in. 185.4 cm. Weight: 225.8 lb. oz. 102.422 kg. Patient's BMI: 29.8 3. Vital Signs: BP: 140/80 Pulse: 71 Resp: 16 Temp: 02 Sat: 97 ECG Mon: 4. Pain Intensity: 5 5. Fall Risk: Dizziness: N Needs help standing or walking: N Fallen in the last 3 months: N Fall risk comments: 6. Patient on Blood Thinner: XARELTO 7. History of Hypertension: N 8. Opioid Therapy greater than 6 weeks: N Opiate Contract Signed: 9. Risk Assessment Tool Provided: LOW 10. Functional Assessment Tool: 11. Recreational Drug Use: Never Drug Type: Tobacco Use: Never Smoker Tobacco Type: Amount or Packs/day: How Many Years: Alcohol Use: No Frequency: Quant:
== END | disposition home or self-care (01) ==
LOC: PAIN 12:08
PROVIDERS: ATTEND Anesthesiology Pain Medicine
DX: M79.18 Myalgia, other site (principal); G89.29 Other chronic pain; Z98.890 Other specified postprocedural states; Z79.899 Other long term (current) drug therapy; Z88.2 Allergy status to sulfonamides; Z79.01 Long term (current) use of anticoagulants

== ENCOUNTER → 2021-03-17 | Outpatient (CLI) | payer OTHER ==
[~2021-03-17] VITALS: Ht 185.4 cm; Wt 101.2 kg
[~2021-03-17] MED LIST changes: +SKELAXIN 800 M800 M1 PO
--- NOTE | ~2021-03-17 | HPC ---
[facility] [address] [place] [address] PAIN MANAGEMENT CONSULTATION Name: SEUN MYLES Room #: REG RITA [place].#: [id number] Admission: 03/17/21 Attend Phys: Mehdi Cervantes DO Discharge: Date of : 33 Report #: [id number] THIS REPORT FOR: cc: FAM - Family physician unknown FAM - Family physician unknown Mehdi Cervantes DO ~ cc: Mehdi Magana DO DATE OF SERVICE: 03/17/2021 CHIEF COMPLAINT: Left neck pain. HISTORY OF PRESENT ILLNESS: As you know, the patient is a very pleasant 85-year-old male returning in followup visit with left neck pain. He reports crepitus with movement of the cervical spine. Pain is generated with movement of the left in a rotational component and lateral flexion to the left. He is able to localize pain directly over the facet joints of the cervical spine. He has noted progressive worsening of symptoms with recent weather changes. He has trialled conservative treatment apparently to even taking one of his 's cyclobenzaprine. His reports that he became "crazy" while on the medication. She had to take the medication away from the patient, though he did indicate improvement in symptoms with the therapy. He returns today in followup visit discussed treatment options for left neck pain. He continues on his Xarelto and has not discontinued the medication prior to the visit. ALLERGIES: IV CONTRAST AGENT, PHENYTOIN, DICLOFENAC, PENICILLIN, LEVOTHYROXINE, ENOXAPARIN, CIPROFLOXACIN, TRIAMTERENE, SULFAMETHOXAZOLE, ELIQUIS, AND MYRBETRIQ. CURRENT MEDICATIONS: Sotalol 80 mg twice a day, metoprolol 50 mg once a day, Xarelto 20 mg once a day, levothyroxine 137 mcg per day, cetirizine 10 mg per day, fenofibrate 160 mg per day. SOCIAL HISTORY: The patient denies tobacco, alcohol, IV or illicit drug use. He is retired, retired years ago, accompanied by his , present in room today. IMAGING: No new imaging is available. PQRS: The patient has known arthritic changes of the cervical spine, lumbar spine, bilateral shoulders and elbows. No rheumatoid arthritis. He is placing current pain score at 5/10. He is not a fall risk, has not had a fall in last 3 months. He is on Xarelto and has not discontinued the medication prior to the visit. He is treated for hypertension. He is not on any opioids, has a low opioid addiction potential. Pain impact is of 22/70, mild interference of daily activities secondary to pain. [address] [address] PAIN MANAGEMENT CONSULTATION Name: SEUN MYLES Room #: REG [facility] Jos[place].#: [id number] Admission: 03/17/21 Attend Phys: Mehdi Cervantes DO Discharge: Date of : 33 Report #: [id number] PHYSICAL EXAMINATION: VITAL SIGNS: Blood pressure 132/71, pulse is 89, respiratory rate 18 and unlabored. The patient is 96% on room air, height 6 feet 1 inch tall, weight 223 pounds, BMI calculated 29.4. GENERAL: Well-developed, well-nourished, well-hydrated 85-year-old male appearing stated age, pain is rated today around 5/10. HEENT: Normocephalic, atraumatic. Pupils equal, round and responsive. He is wearing a mask in compliance with COVID-19 regulations. EXTREMITIES: Show no clubbing, no cyanosis, no edema. MUSCULOSKELETAL: There is palpatory tenderness noted over the paraspinal musculature of the cervical spine on the left. Deep palpation over the facet joints causes the patient's typical pain. Lateral flexion and rotation to the left causes intensification of pain. Spurling's test is negative. There is noted crepitus with rotation to the left, negative on the right. Upper extremity strength appears symmetrical 5/5 intact to light touch from C5 through T1 dermatomes. ASSESSMENT: 1. Cervical spondylosis without radiculopathy. 2. Myofascial pain of the cervical spine. 3. Facet arthropathy of cervical spine. 4. Recurrent left neck pain. PLAN: 1. Based on today's physical exam and history the patient has provided, the description the patient uses in regards to pain as well as location of symptoms, it would appear he is suffering from a combination of facet arthropathy generated pain leading to myofascial symptoms overlying. The rotational component and lateral component is indicative of cervical facet arthropathy. We do not have imaging of the patient's cervical spine, but given his advanced age, will likely see severe arthritic changes at the more mobile areas of the cervical spine, specifically over the C4-C5, C5-C6 levels. He does have some symptoms with rotation, which would place some mild arthritic changes to moderate arthritic changes in the upper cervical region. We discussed with the patient the treatment options following was discussed with the patient today. We discussed physical therapy, stretching exercises and traction techniques as a treatment option. This is a very conservative option, which will provide good benefit. We discussed medication management. He has had Skelaxin in the past and did well with this medication and had no side effects per the recollection of the patient or his who is present in room today. I would recommend he stay away from cyclobenzaprine, given the dysphoric effects, he experienced on his 's medication. We discussed intraarticular facet injections and myofascial injections as a treatment course and ultimately if necessary surgical options, though given his advanced age, I do not feel that is necessary and given the fact he is not experiencing significant pain. After reviewing the [facility] [address] [place] [address] PAIN MANAGEMENT CONSULTATION Name: SHAMEKASEUN STOCKTON Room #: REG RITA [place]#: [id number] Admission: 03/17/21 Attend Phys: Mehdi Cervantes DO Discharge: Date of : 33 Report #: [id number] risks and benefits of all proposed treatment options, the patient chose to make adjustments in medication management initially. If this is ineffective, then look towards injections. 2. The patient was provided prescription of Skelaxin 800 mg tablets. I have given him #60. I have advised him to take a half tab twice to 3 times a day as necessary. He is to watch for side effects as is his including sleepiness, disorientation, confusion, mental slowing or dysphoric effects. If he notes any side effects, discontinue the medication immediately. A prescription for #60 tablets was sent to his local pharmacy. 3. The patient and I discussed that if he does wish to undergo injections, we would have to stop the Xarelto. Xarelto will have to be discontinued for 3 days if the patient wishes to undergo the procedure. He will make an appointment if he wishes to undergo the injections and he will then be advised to come off the Xarelto in an appropriate timeframe. 4. We plan to see the patient back in followup visit on an as needed basis. I am hopeful the medication adjustments will be beneficial, if they are not, we will see him back to undergo injections. By: 0905 [id number] Mehdi Cervantes DO /nt
[2021-03-17 09:13] VITALS: BP 132/71
--- NOTE | 2021-03-17 09:16 | NUR ---
Pain Clinic Assessment: 1. History of Osteoarthritis: Left Upper Extremity History of Rheumatoid Arthritis: Not Applicable 2. Height: 6 ft. 1 in. 185.4 cm. Weight: 223.0 lb. oz. 101.152 kg. Patient's BMI: 29.4 3. Vital Signs: BP: 132/71 Pulse: 89 Resp: 18 Temp: 02 Sat: 96 ECG Mon: 4. Pain Intensity: 5 5. Fall Risk: Dizziness: N Needs help standing or walking: N Fallen in the last 3 months: N Fall risk comments: 6. Patient on Blood Thinner: XARELTO 7. History of Hypertension: N 8. Opioid Therapy greater than 6 weeks: N Opiate Contract Signed: 9. Risk Assessment Tool Provided: LOW-0 10. Functional Assessment Tool: 11. Recreational Drug Use: Never Drug Type: Tobacco Use: Never Smoker Tobacco Type: Amount or Packs/day: How Many Years: Alcohol Use: No Frequency: Quant:
== END ==
LOC: PAIN 03-13 12:55
PROVIDERS: ATTEND Anesthesiology Pain Medicine
DX: M47.812 Spondylosis without myelopathy or radiculopathy, cervical region (principal); M79.18 Myalgia, other site; M12.88 Other specific arthropathies, not elsewhere classified, other specified site; Z88.0 Allergy status to penicillin; Z88.8 Allergy status to other drugs, medicaments and biological substances; Z79.899 Other long term (current) drug therapy